=== PATIENT | female | born 1950 ===

== ENCOUNTER → 2017-06-04 | Outpatient (REF) | payer OTHER ==
[2017-06-04 19:56] LABS: FERRITIN 21 NG/ML (8-252); PERCENT SATURATION 19.2 % (13.2-45.0); TOTAL IRON BINDING CAPACITY 354 UG/DL (250-450); VITAMIN B12 LEVEL 513 PG/ML
[2017-06-04 19:57] LABS: FOLATE > 24.0 NG/ML
== END ==
LOC: M LAB REF 17:32
PROVIDERS: ATTEND Internal Medicine Nephrology
DX: D64.9 Anemia, unspecified (principal)